=== PATIENT | male | born 1970 | race Caucasian/White ===

== ENCOUNTER 2018-11-02 21:28 | Emergency (ER) | payer BC ==
[~2018-11-02] VITALS: Ht 182.9 cm; Wt 77.1 kg
[2018-11-02] MEDS ORDERED: PROZAC40 MG ORAL (21:37)
[2018-11-02 21:43] VITALS: BP 132/52
[2018-11-02] MEDS ORDERED: Tetanus/Diptheria/Pertussis Vaccine 0.5ml Syr IM ONE (22:00)
--- NOTE | 2018-11-02 22:04 | Emergency Room Report ---
History of Present Illness General Chief Complaint: Upper Extremity Injury Source: Patient Present Illness HPI Patient sliced off the tip of his right ring finger cutting fennel at 9 AM. He continued to bleed; however, now with pressure here the bleeding has stopped. Greater than 10 years since his last tetanus shot. The pain is rated 1/10 at this time - somewhat sharp and not radiating. Denies taking blood thinners or any other medication at this time. Right handed. No medical problems. Denies somatic complaints. 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 Reviewed Nursing Documentation: PMH: Agreed; PSxH: Agreed Nursing Documentation-PMH Past Medical History: No Stated History Review of Systems Constitutional: Denies: fever Skin: Reports: see HPI Neurological: Denies: numbness Hematologic/Lymphatic: Reports: see HPI Physical Exam Vital Signs Date Time Temp Pulse Resp B/P (MAP) Pulse Ox O2 Delivery O2 Flow Rate FiO2 11/02/18 21:32 98.2 86 18 146/89 95 Room Air Sp02 EP Interpretation: reviewed, normal General Appearance: well appearing, no apparent distress Head: normocephalic Eyes: bilateral eye normal inspection, bilateral eye PERRL ENT: hearing grossly normal, normal voice, moist mucus membranes Neck: full range of motion, supple Respiratory: no respiratory distress, speaking full sentences Cardiovascular #1: regular rate, rhythm Cardiovascular #2: 2+ radial (R) - normal capillary fill Gastrointestinal: normal inspection Musculoskeletal: gait/station normal, normal range of motion Neurologic: alert, grossly normal Psychiatric: mood/affect normal Skin: other - avulsion tip of R ring finger > 1 cm tip - no bleeding Medical Decision Making Diagnostic Impression: Primary Impression: Right ring finger tip avulsion ER Course Patient with avulsion of tip of R ring finger. Bleeding now controlled. Topical wound care and tylenol ordered along with tetanus. Dressing applied by techs and myself - Xeroform and tube. Discussed expected wound care and healing. Patient stable for outpatient observation and treatment. Last Vital Signs Date Time Temp Pulse Resp B/P (MAP) Pulse Ox O2 Delivery O2 Flow Rate FiO2 11/02/18 22:33 98.0 79 18 142/69 100 Room Air Status: improved Disposition: HOME, SELF-CARE Condition: Improved Scripts Bacitracin (Bacitracin) 28.4 Gm Oint...g. 1 APPLIC TOPIC THREE TIMES A DAY, #20 GM Prov: Maciej Burdick MD 11/02/18 Referrals: NOT CHOSEN IPA/,REFERRING (PCP) Maciej Burdick MD Nov 02, 2018 22:04
[2018-11-02] MEDS ORDERED: BACITRACIN15 GM TOPIC (22:07)
[2018-11-02 22:30] VITALS: BP 142/69
[2018-11-02 22:33] VITALS: BP 142/69
== END 2018-11-02 22:34 | disposition home or self-care (01) ==
LOC: EMR 22:00
DX: S61.214A Laceration without foreign body of right ring finger without damage to nail, initial encounter (principal); Z23 Encounter for immunization; W45.8XXA Other foreign body or object entering through skin, initial encounter; Y92.9 Unspecified place or not applicable
CPT/HCPCS: 90471; 90715; 99282